=== PATIENT | female | born 1990 | race African-American/Black ===

== ENCOUNTER 2022-09-27 09:58 | Emergency (ER) | payer MEDICAID, OTHER ==
[~2022-09-27] VITALS: Ht 172.7 cm; Wt 98.1 kg
[2022-09-27 10:13] VITALS: BP 152/82
[2022-09-27] MEDS ORDERED: HYDROcodone-ACET 10/325MG TAB PO ONE (10:30)
[2022-09-27] MEDS ORDERED: IBUP800T26 PO (11:31)
== END 2022-09-27 12:04 | disposition home or self-care (01) ==
LOC: ER 09:58
DX: R51.9 Headache, unspecified (principal)
CPT/HCPCS: 70450